=== PATIENT | female | born 1950 | race Caucasian/White ===

== ENCOUNTER 2023-05-03 23:41 | Emergency (ER) | payer OTHER, SELFPAY ==
[2023-05-03 23:51] VITALS: BP 185/86; PULSE 89; RESP 17; TEMP 36.3; O2SAT 98; BMI 30.2
--- NOTE | 2023-05-04 00:10 | ED_ITS ---
HPI - Extremity Problem General Chief complaint: Extremity Problem,Nontraumatic Stated complaint: rt knee possible infection after replacement Time Seen by Provider: 05/03/23 23:44 Source: patient Mode of arrival: Ambulatory History of Present Illness HPI Narrative: 73-year-old woman with history of bilateral knee replacement right knee done in February in [place], hypertension, hyperlipidemia currently on Dupixent for dermatologic reasons presents with increasing pain in the right knee. She is concerned that there may be developing infection. She notes over the last week she is been having increasing pain on the proximal lateral aspect of the right knee without fevers, chill, warmth, redness. There is still slightly more s welling in the right knee compared to the left knee with the surgery to replace the knee in February of 2023. She describes no specific trauma but is noticing mild increase in pain. She is worried that it is infected. She comes in for further evaluation Related Data Home Medications Medication Instructions Recorded Confirmed biotin 5 mg tablet ##0 11/18/17 01/13/23 naproxen sodium 220 mg capsule 220 mg PO ##0 11/18/17 01/13/23 (Aleve) simvastatin 10 mg tablet ##0 11/18/17 01/13/23 triamterene 37.5 ##0 11/18/17 01/13/23 mg-hydrochlorothiazide 25 mg tablet dupilumab [Dupixent Pen] SUBCUT 01/13/23 01/13/23 Previous Rx's Medication Instructions Recorded oseltamivir 75 mg capsule (Tamiflu) 75 mg PO BID #10 caps 11/18/17 Allergies Allergy/AdvReac Type Severity Reaction Status Date / Time No Known Drug Allergies Allergy Verified 05/03/23 23:51 Review of Systems Review of Systems Narrative: Pertinent positive and negative findings as per HPI Patient History Medical History (Updated 05/04/23 @ 01:30 by Svetlana Pham MD) Hyperlipidemia Hypertension Surgical History (Updated 05/04/23 @ 00:47 by Svetlana Pham MD) Total knee replacement status Social History Smoking Status: Former smoker Smoking Status: Former smoker Exam Initial Vital Signs Initial Vital Signs: Vital Signs Temperature 97.4 F L 05/03/23 23:51 Pulse Rate 89 05/03/23 23:51 Respiratory Rate 17 05/03/23 23:51 Blood Pressure 185/86 H 05/03/23 23:51 Pulse Oximetry 98 05/03/23 23:51 Oxygen Delivery Method Room Air 05/03/23 23:51 General: Healthy appearing, in no acute distress. Able to give a complete and coherent history. Well-nourished well-developed HEENT: Moist mucous membranes, normal sclera with reactive pupils, Respiratory: Lungs are clear to auscultation, no wheezing no rales no rhonchi. Full and symmetrical air movement Cardiac: Regular rate and rhythm no murmurs no bruits Abdomen: Soft, nontender, good bowel tones, no flank pain Skin: Warm and dry, no rashes Neurologic: Grossly neurologically intact with no obvious asymmetries or abnormalities Extremities: Knees are examined, bilateral knee replacement scars. Both well healed. The right leg is slightly more swollen than the left. There is no dramatic point tenderness nor effusion. No specific warmth or redness to the knee. Range of motion is not significantly limited with the right knee. Psych: Cooperative, appropriate insight and affect Course Orders Ordered: ED Orders 05/04/23 00:16 XR knee RT 3V Stat 05/04/23 00:25 CRP [C-Reactive Protein Quant] Stat Complete Blood Count AUTO DIFF Stat Comprehensive Metabolic Panel Stat D Dimer Stat Erythrocyte Sedimentation Rate Stat 05/04/23 00:52 US periph venous low extrem rt Stat Vital Signs Vital signs: Vital Signs - 8 hr 05/03/23 23:51 Temperature 97.4 F L Pulse Rate 89 Respiratory Rate 17 Blood Pressure 185/86 H Pulse Oximetry 98 Oxygen Delivery Method Room Air MDM - Extremity (Nontraumatic) Lab Data 05/04/23 00:25 05/04/23 00:25 Labs: Lab Results 05/04/23 05/04/23 05/04/23 Range/Units 00:25 00:25 00:25 WBC (4.5-11.0) X10^3/uL RBC (4.0-5.2) X10^6/uL Hgb (12.0-16.0) g/dL Hct (36-46) % MCV (80-100) fL MCH (26-34) PG MCHC (30-36) % RDW (11.6-14.8) % Plt Count (150-400) X10^3/uL Neut % (Auto) (50-75) % Lymph % (Auto) (25-40) % [place] % (Auto) (3-14) % Eos % (Auto) (2-4) % Baso % (Auto) (0-2) % Neut # (Auto) (0496-8376) /uL Lymph # (Auto) (9255-0690) /uL [place] # (Auto) (0-900) /uL Eos # (Auto) (0-450) /uL Baso # (Auto) (0-100) /uL ESR 15 (0-20) MM/HR D-Dimer 1258 H (<500) ng/ml Sodium (137-145) mmol/L Potassium (3.4-5.1) mmol/L Chloride (98-107) mmol/L Carbon Dioxide (22-32) mmol/L BUN (7-17) mg/dL Creatinine (0.52-1.04) mg/dL Estimated GFR (>60) mL/min BUN/Creatinine Ratio (6-22) Glucose (80-110) mg/dL Calcium (8.4-10.2) mg/dL Total Bilirubin (0.2-1.3) mg/dL AST (14-36) IU/L ALT (<35) IU/L Alkaline Phosphatase (38-126) U/L C-Reactive Protein < 0.5 (<1.0) mg/dL Total Protein (6.3-8.2) g/dL Albumin (3.5-5.0) g/dL Globulin (1.7-4.1) g/dL Albumin/Globulin Ratio (1.0-2.8) 05/04/23 05/04/23 Range/Units 00:25 00:25 WBC 6.3 (4.5-11.0) X10^3/uL RBC 4.44 (4.0-5.2) X10^6/uL Hgb 13.1 (12.0-16.0) g/dL Hct 38.1 (36-46) % MCV 85.7 (80-100) fL MCH 29.6 (26-34) PG MCHC 34.5 (30-36) % RDW 12.6 (11.6-14.8) % Plt Count 238 (150-400) X10^3/uL Neut % (Auto) 55.7 (50-75) % Lymph % (Auto) 32.4 (25-40) % [place] % (Auto) 7.9 (3-14) % Eos % (Auto) 3.0 (2-4) % Baso % (Auto) 1.0 (0-2) % Neut # (Auto) 3500 (2580-5333) /uL Lymph # (Auto) 2000 (9374-3052) /uL [place] # (Auto) 500 (0-900) /uL Eos # (Auto) 200 (0-450) /uL Baso # (Auto) 100 (0-100) /uL ESR (0-20) MM/HR D-Dimer (<500) ng/ml Sodium 135 L (137-145) mmol/L Potassium 3.1 L (3.4-5.1) mmol/L Chloride 98 (98-107) mmol/L Carbon Dioxide 31 (22-32) mmol/L BUN 22 H (7-17) mg/dL Creatinine 1.17 H (0.52-1.04) mg/dL Estimated GFR 50 L (>60) mL/min BUN/Creatinine Ratio 18.8 (6-22) Glucose 106 (80-110) mg/dL Calcium 8.9 (8.4-10.2) mg/dL Total Bilirubin 0.4 (0.2-1.3) mg/dL AST 26 (14-36) IU/L ALT 22 (<35) IU/L Alkaline Phosphatase 100 (38-126) U/L C-Reactive Protein (<1.0) mg/dL Total Protein 7.2 (6.3-8.2) g/dL Albumin 3.9 (3.5-5.0) g/dL Globulin 3.3 (1.7-4.1) g/dL Albumin/Globulin Ratio 1.2 (1.0-2.8) MDM Narrative Medical decision making narrative: CC: One-week of mild increasing pain right knee, post knee replacement May of this year Complicating co-morbidities: Bilateral knee replacements, currently on Dupixent Data collected from: patient, Social determinants of health that may influence the patients condition: Medical records reviewed: Differential considered: Right knee irritation, DVT, right knee infection, loosening right knee implant Exam documented above, pertinent findings include: Minimal tenderness over the proximal lateral aspect of the right knee without limited range of motion. No increased warmth or redness. Slightly more fullness right side than the left side as it has been since her surgery. Lab Test results independently reviewed as above. Pertinent findings: CBC is unremarkable D-dimer is elevated at 1258 Chemistries show mild hyponatremia 135, mildly low potassium at 3.1, creatinine at 1.17 with no comparison for baseline Sed rate of 15 CRP at less than 0.5 Independently reviewed EKG as above Imaging studies independently reviewed: Ultrasound of the right lower extremity does not show DVT X-ray of the knee shows a small joint effusion however there are no suspicious periprosthetic lucencies and no suspicious soft tissue calcifications, no fracture or dislocation. Discussion: 73-year-old woman comes in with increasing pain in her right knee after joint replacement in February. She is concerned that it might be infected and is at slight increased risk for infection given her Dupixent. At this point she does have a small effusion however it does not look like there is loosening of the joint hardware, any acute injuries, normal white blood cell count sed rate CRP without warmth or extreme tenderness I think infection is far less likely. There is no evidence of DVT. At this time I suspect this is simply mild overuse with effusion will recommend rest and elevation. Follow-up with orthopedic surgery if symptoms are not improving. Discharge Plan Departure Patient Disposition: Home Clinical Impression: Effusion of knee joint right Instructions: DI for Knee Pain Activity Restrictions/Additional Instructions: Thank you for coming in today I suspect that your knee pain is from mild overuse. You have a small effusion in the knee. X-rays do not show any significant abnormalities around the knee replacement to suggest that the hardware is loosening, white blood cell count, sed rate and CRP are all normal suggesting absence of any significant infection. Ultrasound does not show a blood clot in leg. At this time, I would recommend a bit more rest, ice for the knee and continued conservative management. I have given you copies of your blood work to share with your orthopedic surgeon if you choose to schedule an appointment in the next 1-2 weeks. If you find that you are getting worse or develop any new symptoms, please feel free to return to the emergency department for further evaluation. Prescriptions: No Action dupilumab [Dupixent Pen] SUBCUT simvastatin 10 MG tablet Qty: 0 triamterene-hydrochlorothiazid 37.5 MG/25 MG tablet Qty: 0 biotin 5 MG tablet Qty: 0 naproxen sodium [Aleve] 220 MG capsule 220 mg PO Qty: 0 oseltamivir [Tamiflu] 75 MG capsule 75 mg PO BID Qty: 10 0RF Referrals: Miscellaneous,Doctor, MD [Primary Care Provider] - Stand Alone Forms: Patient Portal/API
--- NOTE | 2023-05-04 00:16 | DI.RAD.S_ITS ---
PROCEDURE: XR KNEE RT 3V INDICATIONS: pain and swelling TECHNIQUE: 3 views of the knee were acquired. COMPARISON: None. FINDINGS: Bones: No fractures or dislocations. A right knee prosthesis is present. No suspicious periprosthetic lucencies. Soft tissues: There is a small joint effusion. No suspicious soft tissue calcifications. IMPRESSION: 1. No fracture or dislocation. 2. Small joint effusion. Dictated by: Dany Dumont M.D. on 05/04/2023 at 0:56 Approved by: Dany Dumont M.D. on 05/04/2023 at 1:00
[2023-05-04 00:34] LABS: Add Manual Diff / Slide Review NO; Basophils Absolute Auto 100 /uL (0-100); Eosinophils Absolute Auto 200 /uL (0-450); Hematocrit 38.1 % (36-46); Hemoglobin 13.1 g/dL (12.0-16.0); Lymphocytes Absolute Auto 2000 /uL (1100-4500); Lymphocytes Percent Auto 32.4 % (25-40); Mean Corpuscular HGB Conc 34.5 % (30-36); Mean Corpuscular Hemoglobin 29.6 PG (26-34); Mean Corpuscular Volume 85.7 fL (80-100); Monocytes Absolute Auto 500 /uL (0-900); Monocytes Percent Auto 7.9 % (3-14); Neutrophils Absolute Auto 3500 /uL (1500-7000); Neutrophils Percent Auto 55.7 % (50-75); Platelet Count 238 X10^3/uL (150-400); Red Blood Cell Count 4.44 X10^6/uL (4.0-5.2); Red Cell Distribution Width 12.6 % (11.6-14.8); White Blood Cell Count 6.3 X10^3/uL (4.5-11.0)
[2023-05-04 00:42] LABS: D Dimer 1258 ng/ml (<500)
[2023-05-04 00:45] LABS: Alanine Aminotransferase 22 IU/L (<35); Albumin 3.9 g/dL (3.5-5.0); Albumin Globulin Ratio 1.2 (1.0-2.8); Alkaline Phosphatase 100 U/L (38-126); Aspartate Aminotransferase 26 IU/L (14-36); BUN Creatinine Ratio 18.8 (6-22); Bilirubin Total 0.4 mg/dL (0.2-1.3); Blood Urea Nitrogen 22 mg/dL (7-17); Calcium 8.9 mg/dL (8.4-10.2); Carbon Dioxide 31 mmol/L (22-32); Chloride 98 mmol/L (98-107); Estimated Glomerular Filt Rate 50 mL/min (>60); Globulin 3.3 g/dL (1.7-4.1); Glucose 106 mg/dL (80-110); HEMOLYSIS 18 (0-50); Potassium 3.1 mmol/L (3.4-5.1); Sodium 135 mmol/L (137-145); Total Protein 7.2 g/dL (6.3-8.2)
--- NOTE | 2023-05-04 00:52 | DI.US.S_ITS ---
PROCEDURE: US PERIPH VENOUS LOW EXTREM RT INDICATIONS: INCREASING PAIN AND SWELLING KNEE REPLACED 02/23 TECHNIQUE: Real-time imaging, as well as color and pulse Doppler interrogation, were performed of the lower extremity deep veins from the inguinal ligament to the popliteal fossa. COMPARISON: None. FINDINGS: The common femoral, femoral and popliteal veins are normally compressible, and free of intraluminal thrombus. Color and pulse Doppler demonstrate normal phasic intraluminal flow. There is normal augmentation response to distal compression maneuver. IMPRESSION: 1. No evidence of deep venous thrombosis in the right lower extremity. Dictated by: Dany Dmuont M.D. on 05/04/2023 at 2:06 Approved by: Dany Dumont M.D. on 05/04/2023 at 2:34
[2023-05-04 00:59] LABS: C-Reactive Protein Quant < 0.5 mg/dL (<1.0)
[2023-05-04 01:02] LABS: Erythrocyte Sedimentation Rate 15 MM/HR (0-20)
[2023-05-04 01:35] VITALS: BP 166/78; PULSE 74; RESP 16; O2SAT 100
== END 2023-05-04 01:35 | disposition home or self-care (01) ==
PROVIDERS: Emergency Provider Emergency Medicine
DX: M25.461 Effusion, right knee (principal)
CPT/HCPCS: 36415; 73562; 80053; 85025; 85379; 85651; 86140; 93971; 99284

== ENCOUNTER 2025-03-22 19:19 | Emergency (ER) | payer OTHER, SELFPAY ==
[2025-03-22 19:29] VITALS: BP 161/74; PULSE 69; RESP 16; TEMP 37; O2SAT 98; BMI 28.8
--- NOTE | 2025-03-22 19:37 | EKG_ITS ---
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
--- NOTE | 2025-03-22 20:28 | ED_ITS ---
HPI - Arrhythmia/Palpitations General Chief Complaint: Arrhythmia/Palpitations Stated Complaint: Low heart rate sent by nurse line Time Seen by Provider: 03/22/25 20:28 Source: patient Mode of arrival: Ambulatory History of Present Illness HPI narrative: Patient is a 75-year-old female without any significant past medical history comes into the ED from home for evaluation of the heart rate, she states that she has had an and a restful night asleep and states that today she feels ?horrible she describes this as feeling nauseous lightheaded fatigue, states that she noticed that her heart rate was in the 50s and was concerned so called the primary care doctor and was instructed come into the ED she denies any chest pain shortness of breath or any other symptoms at this time. Related Data Home Medications ?Medication ?Instructions ?Recorded ?Confirmed biotin 5 mg tablet ##0 11/18/17 01/13/23 naproxen sodium 220 mg capsule 220 mg PO ##0 11/18/17 01/13/23 (Aleve) simvastatin 10 mg tablet ##0 11/18/17 01/13/23 triamterene 37.5 ##0 11/18/17 01/13/23 mg-hydrochlorothiazide 25 mg tablet dupilumab [Dupixent Pen] SUBCUT 01/13/23 01/13/23 Previous Rx's ?Medication ?Instructions ?Recorded oseltamivir 75 mg capsule (Tamiflu) 75 mg PO BID #10 c aps 11/18/17 Allergies Allergy/AdvReac Type Severity Reaction Status Date / Time No Known Drug Allergies Allergy Verified 03/22/25 19:29 Review of Systems Review of Systems Narrative: General: Positive generalized weakness Denies fever, chills, weight loss HEENT: Denies headache, eye drainage, eye irritation, head trauma, sore throat, voice change Cardiovascular: Positive bradycardia Denies any chest pain, palpitations, tachycardia Respiratory: Denies any shortness of breath, cough, wheeze, stridor GI/: Denies any abdominal pain, nausea, vomiting, diarrhea, bright red blood per rectum, melanotic stools, urinary frequency, urinary retention, dysuria, hematuria MSK: Denies any joint pain, muscle pains, swelling Skin: Denies any rashes, lesions, discoloration Neuro: Denies any headache, lightheadedness, dizziness, fainting, weakness Psych: Denies SI/HI Patient History Medical History (Updated 03/22/25 @ 21:58 by Hunter Artis DO) Hyperlipidemia Hypertension Surgical History (Updated 05/04/23 @ 00:47 by Svetlana Pham MD) Total knee replacement status Smoking Status: Never smoker Exam Narrative Exam Narrative: General: Cooperative, well-developed, not in acute distress HEENT: Normocephalic, atraumatic, PERRLA, normal sclera, eyelids normal Neck: Active full range of motion, atraumatic Chest: Normal to inspection, negative crepitus, no overlying erythema ecchymosis Respiratory: Normal respiratory effort, not in acute respiratory distress, clear to auscultation bilaterally negative cough, wheeze, tachypnea, rhonchi, rales Cardiology: Regular rate rhythm negative gallop, murmur, rubs GI/: No tenderness to palpation, soft, non rigid, normal to inspection, exam deferred MSK: Full active range of motion in all 4 extremities, atraumatic, no tenderness to palpation of any bony prominences Skin: No rashes or lesions noted Neuro: Alert awake oriented x3, moves all 4 extremities spontaneously, cranial nerves intact, able to answer all questions appropriately follows commands appropriately Psych: Cooperative, negative suicidal or homicidal ideations Initial Vital Signs Initial Vital Signs: Vital Signs Temperature 98.6 F 03/22/25 19:29 Pulse Rate 69 03/22/25 19:29 Respiratory Rate 16 03/22/25 19:29 Blood Pressure 161/74 H 03/22/25 19:29 Pulse Oximetry 98 03/22/25 19:29 Oxygen Delivery Method Room Air 03/22/25 19:29 Course Orders Ordered: ED Orders 03/22/25 19:37 EKG-12 Lead Stat 03/22/25 20:29 XR chest 1V Stat 03/22/25 20:33 Complete Blood Count AUTO DIFF Stat Comprehensive Metabolic Panel Stat Covid-19 + FLU A/B + RSV - PCR Stat Lipase Stat MAG [Magnesium] Stat Troponin & CK Cardiac Panel Stat 03/22/25 22:20 Urine Culture Stat Urine Microscopic Stat Vital Signs Vital signs: Vital Signs - 8 hr 03/22/25 19:29 Temperature 98.6 F Pulse Rate 69 Respiratory Rate 16 Blood Pressure 161/74 H Pulse Oximetry 98 Oxygen Delivery Method Room Air MDM - Arrhythmia/Palpitations Differential Diagnosis Differential diagnosis: Likely palpitations, anxiety, sinus tachycardia, artial fibrillation, artial flutter, ventricular premature beats, ventricular tachycardia and other (ACS, pneumonia, electrolyte abnormality, COVID, flu, RSV, urinary tract infection) Lab Data 03/22/25 20:33 03/22/25 20:33 Labs: Lab Results 03/22/25 Range/Units 20:33 WBC 6.3 (4.5-11.0) X10^3/uL RBC 4.64 (4.0-5.2) X10^6/uL Hgb 14.0 (12.0-16.0) g/dL Hct 41.1 (36-46) % MCV 88.5 (80-100) fL MCH 30.3 (26-34) PG MCHC 34.2 (30-36) % RDW 12.5 (11.6-14.8) % Plt Count 234 (150-400) X10^3/uL Neut % (Auto) 71.0 (50-75) % Lymph % (Auto) 21.3 L (25-40) % [place] % (Auto) 6.4 (3-14) % Eos % (Auto) 0.7 L (2-4) % Baso % (Auto) 0.6 (0-2) % Neut # (Auto) 4500 (2840-3677) /uL Lymph # (Auto) 1300 (2208-7445) /uL [place] # (Auto) 400 (0-900) /uL Eos # (Auto) 0 (0-450) /uL Baso # (Auto) 0 (0-100) /uL Sodium 137 (137-145) mmol/L Potassium 3.5 (3.4-5.1) mmol/L Chloride 103 (98-107) mmol/L Carbon Dioxide 26 (22-32) mmol/L BUN 20 H (7-17) mg/dL Creatinine 0.92 (0.52-1.04) mg/dL Estimated GFR > 60 (>60) mL/min BUN/Creatinine Ratio 21.7 (6-22) Glucose 111 H (70-99) mg/dL Calcium 9.5 (8.4-10.2) mg/dL Magnesium 1.7 (1.6-2.3) mg/dL Total Bilirubin 0.7 (0.2-1.3) mg/dL AST 23 (14-36) IU/L ALT 17 (<35) IU/L Alkaline Phosphatase 60 (38-126) U/L Total Creatine Kinase 71 (30-135) U/L Troponin I < 0.012 (0.01-0.034) ng/mL Total Protein 7.5 (6.3-8.2) g/dL Albumin 4.5 (3.5-5.0) g/dL Globulin 3.0 (1.7-4.1) g/dL Albumin/Globulin Ratio 1.5 (1.0-2.8) Lipase 78 (23-300) U/L SARS-CoV-2 (PCR) Negative (Negative) Influenza A (RT-PCR) Flu a negative (NEGATIVE) Influenza B (RT-PCR) Flu b negative (NEGATIVE) RSV (PCR) Negative (Negative) Urine Dip Bedside Urine Glucose Negative Bedside Urine Bilirubin - Negative Bedside Urine Ketone - Negative Urine Specific [place] 1.010 Bedside Urine Occult Blood - Negative Bedside Urine pH 6.0 Bedside Urine Protein - Negative Bedside Urine Urobilinogen - Negative Bedside Urine Nitrite - Negative Bedside Urine Leukocytes + 70 Esterase Imaging Data Chest x-ray: Radiologist's Impresson: [place] [id number] XRay Report Signed Patient: Vivienne Cosme MR#: [id number] : 1950 Acct:[id number] Age/Sex: 75 / F Date of Service: 03/22/25 Loc: ED Accession Number: [id number] Procedure: XR chest 1V Ordering Provider: Hunter Artis D.O. PROCEDURE: XR CHEST 1V INDICATIONS: palpitations TECHNIQUE: One view of the chest was acquired. COMPARISON: None. FINDINGS: Surgical changes and devices: None. Lungs and pleura: Lungs are clear. No pleural effusions or pneumothorax. Mediastinum: Mediastinal contours appear normal. Heart size is normal. Bones and chest wall: No suspicious bony lesions. Overlying soft tissues appear unremarkable. IMPRESSION: No acute cardiopulmonary abnormalities or focal consolidation. ECG Data Interpretation: EKG interpreted ED physician sinus at 66 beats per minute QTC 431 normal axis no STEMI MDM Narrative Medical decision making narrative: Patient is a 75-year-old female with a past medical history of hypertension presents from home for evaluation of multiple complaints, states that she was feeling generalized weakness that started last night and into earlier today, she states that she thought it was secondary to a ?bad night of sleep she states that she went to sleep feeling ?marcel went out today felling fine but when she got home she felt general fatigue, states that she checked her heart rate and states that it was low she states that it was in the 50s states it is normally in the 60s, she states that she has been compliant with her medications denies any trauma or falls denies any other symptoms such as chest pain shortness breath. Patient had lab work imaging EKG performed here in the emergency department. EKG normal sinus nonischemic, chest x-ray without any acute cardiopulmonary abnormality, troponin negative CMP without any acute findings no leukocytosis, respiratory panel negative, urinalysis , patient was monitored multiple times here, EKG not showing any a arrhythmias or blocks, she was instructed follow up with the primary care and Cardiology in outpatient setting she verbalized understanding of this and agrees to being discharged home with outpatient follow up Discharge Plan Departure Patient Disposition: Home Clinical Impression: Episode of generalized weakness Activity Restrictions/Additional Instructions: Please follow up with Cardiology and primary care Please read the discharge instructions sheet carefully and bring all papers to all doctor follow-up visits, as it may contain information that your doctor may want to see. Disease processes change and evolve, if your symptoms worsen or if you develop any new symptoms that are concerning to you please return for evaluation. Your evaluation today does not show any evidence of any life- threatening/serious illnesses requiring admission to the hospital or surgery. Please follow-up with your doctor for re-evaluation in approximately 1 day. Seek immediate medical attention for any worrisome symptoms. *If you do not have a primary care provider please contact the [facility] Resource line at [phone]. They will ask some questions about your medical history and help get you set up with a doctor in the community. Prescriptions: No Action dupilumab [Dupixent Pen] SUBCUT simvastatin 10 MG tablet Qty: 0 triamterene-hydrochlorothiazid 37.5 MG/25 MG tablet Qty: 0 biotin 5 MG tablet Qty: 0 naproxen sodium [Aleve] 220 MG capsule 220 mg PO Qty: 0 oseltamivir [Tamiflu] 75 MG capsule 75 mg PO BID Qty: 10 0RF Referrals: Miscellaneous,Doctor, MD [Primary Care Provider, Medical] Renetta Martin MD [Physician, Cardiology] Stand Alone Forms: Patient Portal/API
--- NOTE | 2025-03-22 20:29 | DI.RAD.S_ITS ---
PROCEDURE: XR CHEST 1V INDICATIONS: palpitations TECHNIQUE: One view of the chest was acquired. COMPARISON: None. FINDINGS: Surgical changes and devices: None. Lungs and pleura: Lungs are clear. No pleural effusions or pneumothorax. Mediastinum: Mediastinal contours appear normal. Heart size is normal. Bones and chest wall: No suspicious bony lesions. Overlying soft tissues appear unremarkable. IMPRESSION: No acute cardiopulmonary abnormalities or focal consolidation. Dictated by: Matt Gardner M.D. on 03/22/2025 at 20:52 Approved by: Matt Gardner M.D. on 03/22/2025 at 20:52
--- NOTE | 2025-03-22 20:40 | PC.NURSE ---
Pt had episode over night of feeling unwell with a low heart rate and low pressure. At home pressure was around 110/70 and HR 48-52. She felt weak, nauseated, and dizzy. she denies c/p, SOB, chest pressure, vision changes. She denies /GI s/sx. She denies new foods or meds. She lives in [place] and is here for vacation and called her nurse help line and was told to come in to the ED.
[2025-03-22 20:43] LABS: Add Manual Diff / Slide Review NO; Basophils Absolute Auto 0 /uL (0-100); Basophils Percent Auto 0.6 % (0-2); Eosinophils Absolute Auto 0 /uL (0-450); Eosinophils Percent Auto 0.7 % (2-4); Hematocrit 41.1 % (36-46); Lymphocytes Absolute Auto 1300 /uL (1100-4500); Lymphocytes Percent Auto 21.3 % (25-40); Mean Corpuscular HGB Conc 34.2 % (30-36); Mean Corpuscular Hemoglobin 30.3 PG (26-34); Mean Corpuscular Volume 88.5 fL (80-100); Monocytes Absolute Auto 400 /uL (0-900); Monocytes Percent Auto 6.4 % (3-14); Neutrophils Absolute Auto 4500 /uL (1500-7000); Platelet Count 234 X10^3/uL (150-400); Red Blood Cell Count 4.64 X10^6/uL (4.0-5.2); Red Cell Distribution Width 12.5 % (11.6-14.8); White Blood Cell Count 6.3 X10^3/uL (4.5-11.0)
[2025-03-22 20:53] LABS: Alanine Aminotransferase 17 IU/L (<35); Albumin 4.5 g/dL (3.5-5.0); Albumin Globulin Ratio 1.5 (1.0-2.8); Alkaline Phosphatase 60 U/L (38-126); Aspartate Aminotransferase 23 IU/L (14-36); BUN Creatinine Ratio 21.7 (6-22); Bilirubin Total 0.7 mg/dL (0.2-1.3); Blood Urea Nitrogen 20 mg/dL (7-17); Calcium 9.5 mg/dL (8.4-10.2); Carbon Dioxide 26 mmol/L (22-32); Chloride 103 mmol/L (98-107); Creatine Kinase 71 U/L (30-135); Estimated Glomerular Filt Rate > 60 mL/min (>60); Glucose 111 mg/dL (70-99); HEMOLYSIS 16 (0-50); Lipase 78 U/L (23-300); Magnesium 1.7 mg/dL (1.6-2.3); Potassium 3.5 mmol/L (3.4-5.1); Sodium 137 mmol/L (137-145); Total Protein 7.5 g/dL (6.3-8.2)
[2025-03-22 21:04] LABS: Troponin I < 0.012 ng/mL (0.01-0.034)
[2025-03-22 21:38] LABS: Influenza A - CEPHEID Flu A NEGATIVE (NEGATIVE); Influenza B - CEPHEID Flu B NEGATIVE (NEGATIVE); Respiratory Syncytial Virus Negative (Negative)
[2025-03-22 21:44] LABS: COVID-19 CEPHEID 4-PLEX PCR Negative (Negative)
[2025-03-22 22:56] LABS: Bacteria Urine Occasional (0-1); RBC Urine 0-1/HPF (0-5/HPF); Squamous Epithelial Cell Urine 1-5 /HPF (0-5/HPF); Urine Volume 10mL (spun); WBC Urine 0-1/HPF (0-5/HPF)
== END 2025-03-22 22:38 | disposition home or self-care (01) ==
PROVIDERS: Emergency Provider Student in an Organized Health Care Education/Training Program
DX: R53.1 Weakness (principal); R00.2 Palpitations
CPT/HCPCS: 0241U; 36415; 71045; 80053; 81003; 81015; 82550; 83690; 83735; 84484; 85025; 87086; 93005; 93010; 99283; 99284

== ENCOUNTER 2025-06-30 10:12 | Emergency (ER) | payer OTHER, SELFPAY ==
[2025-06-30] VITALS (61 sets, daily range): BP systolic 111–146; BP diastolic 50–101; PULSE 50–92; RESP 9–42; TEMP 36.4–36.6; O2SAT 91–100; BMI 28.0
--- NOTE | 2025-06-30 10:24 | EKG_ITS ---
[address] [address] Test Date: 2025-06-30 Pat Name: Vivienne Cosme Department: Room: Gender: Female Health Companion: HEENA : 1950 Requested By: Order Number: [id number] Reading MD: Seamus Montenegro MD Measurements Intervals [place] Rate: 58 P: 50 WI: 154 QRS: 50 QRSD: 92 T: 55 QT: 448 QTc: 439 Interpretive Statements Sinus bradycardia Electronically Signed On 06-30-2025 10:48:16 PDT by Seamus Montenegro MD
--- NOTE | 2025-06-30 10:24 | ED_ITS ---
HPI - Chest Pain <Seamus Ferrer, DO - Last Filed: 07/01/25 10:45> General Chief Complaint: Arrhythmia/Palpitations Stated Complaint: Heart issue; loss consiousness; EMS rec ER visit Time Seen by Provider: 06/30/25 10:16 History of Present Illness HPI narrative: 75-year-old female history of hypertension, dyslipidemia seen 6 weeks ago approximately here in the ER for syncopal episode while sitting in the car went back to [place] where she resides half time of the year placed on a Holter monitor for which he is still wearing presents today with lightheaded and dizziness and had a witnessed syncopal episode that lasted for approximately 30 seconds prior to arrival here. Patient's PCP from [facility] called that she had 6 and 9 sec conversion pauses and will need a pacemaker. Patient is nauseous but denies any headache, fever, rash, blurred vision, chest pain, shortness of breath, diaphoresis, diarrhea, sick contacts, or any history of CVA TIA seizure episodes. Other than what is stated 14 point review of system is negative. Related Data Home Medications ?Medication ?Instructions ?Recorded ?Confirmed biotin 5 mg tablet ##0 11/18/17 01/13/23 naproxen sodium 220 mg capsule 220 mg PO ##0 11/18/17 01/13/23 (Aleve) simvastatin 10 mg tablet ##0 11/18/17 01/13/23 triamterene 37.5 ##0 11/18/17 01/13/23 mg-hydrochlorothiazide 25 mg tablet dupilumab [Dupixent Pen] SUBCUT 01/13/23 01/13/23 Previous Rx's ?Medication ?Instructions ?Recorded oseltamivir 75 mg capsule (Tamiflu) 75 mg PO BID #10 c aps 11/18/17 Allergies Allergy/AdvReac Type Severity Reaction Status Date / Time No Known Drug Allergies Allergy Verified 03/22/25 19:29 Review of Systems <Seamus Ferrer, DO - Last Filed: 07/01/25 10:45> Review of Systems ROS Unobtainable: All systems reviewed & are unremarkable except as noted in HPI and below Patient History <Seamus Ferrer, DO - Last Filed: 07/01/25 10:45> Medical History (Updated 06/30/25 @ 21:53 by Svetlana Pham MD) Hyperlipidemia Hypertension Surgical History (Updated 05/04/23 @ 00:47 by Svetlana Pham MD) Total knee replacement status Exam <Seamus Ferrer DO - Last Filed: 07/01/25 10:45> Narrative Exam Narrative: GENERAL: [75] year old patient appears stated age. Well-developed patient, in mild distress. HEAD: Atraumatic. Normocephalic. EYES: Pupils equal round and reactive. Extraocular motions intact. No scleral icterus. No injection or drainage. ENT: Nose without bleeding, purulent drainage. Throat without erythema, tonsillar hypertrophy or exudate. Airway patent. NECK: Trachea midline. Non tender CARDIOVASCULAR: Regular rate and rhythm without murmurs, gallops, or rubs. RESPIRATORY: Clear to auscultation. Breath sounds equal bilaterally. No wheezes, rales, or rhonchi. GASTROINTESTINAL: Abdomen soft, non-tender, nondistended. EXTREMITIES: No edema or joint tenderness. BACK: Nontender without deformity or crepitance. No flank tenderness. NEURO: AOx3. GCS 15 nonfocal neuro exam 5/5 upper and lower extremity strength uterine nose opposite [id number] rapid alternating movements all intact negative pronator drift SKIN: No rash or erythema of visible areas Initial Vital Signs Initial Vital Signs: Vital Signs Blood Pressure 134/63 06/30/25 10:22 <Svetlana Pham MD - Last Filed: 06/30/25 23:30> Initial Vital Signs Initial Vital Signs: Vital Signs Blood Pressure 134/63 06/30/25 10:22 Course <Seamus Ferrer DO - Last Filed: 07/01/25 10:45> Orders Ordered: Discontinued Medications Heparin Sodium (Porcine) (Heparin 5,000 Unit/Ml Vial) 4,500 unit 60 unit/kg (4500 unit) IV NOW ONE Stop: 06/30/25 14:45 Last Admin: 06/30/25 15:34 Dose: 4,500 unit Documented By: SHABBIR Heparin Sodium/Dextrose (Heparin Drip) 25,000 unit in 500 mls @ 18.942 mls/hr IV CONT ION; Protocol Last Titration: 06/30/25 22:46 Dose: 12 units/kg/hr, 18.942 mls/hr Documented By: JERSON Co-signed By: Admin: 06/30/25 15:33 Dose: 12 units/kg/hr, 18.942 mls/hr Documented By: SHABBIR Co-signed By: BITA Ondansetron HCl (Ondansetron 4 Mg/2 Ml Inj) 4 mg IV NOW ONE Stop: 06/30/25 10:39 Last Admin: 06/30/25 13:04 Dose: Not Given Documented By: SHABBIR Vital Signs Vital signs: Vital Signs - 8 hr 06/30/25 15:30 06/30/25 15:30 06/30/25 15:45 Temperature Pulse Rate 75 67 Respiratory Rate 21 27 H Blood Pressure 127/58 L Pulse Oximetry 95 98 Oxygen Delivery Method 06/30/25 16:00 06/30/25 16:00 06/30/25 16:15 Temperature Pulse Rate 71 80 Respiratory Rate 21 31 H Blood Pressure 130/59 L Pulse Oximetry 99 99 Oxygen Delivery Method 06/30/25 16:30 06/30/25 16:30 06/30/25 16:45 Temperature Pulse Rate 77 76 Respiratory Rate 29 H 24 Blood Pressure 142/63 H Pulse Oximetry 97 Oxygen Delivery Method 06/30/25 17:00 06/30/25 17:00 06/30/25 17:15 Temperature Pulse Rate 77 75 Respiratory Rate 23 21 Blood Pressure 128/60 Pulse Oximetry 98 99 Oxygen Delivery Method 06/30/25 17:30 06/30/25 17:30 06/30/25 17:45 Temperature Pulse Rate 78 74 Respiratory Rate 21 22 Blood Pressure 139/65 Pulse Oximetry 99 99 Oxygen Delivery Method 06/30/25 18:00 06/30/25 18:00 06/30/25 18:15 Temperature Pulse Rate 76 79 Respiratory Rate 32 H 24 Blood Pressure 137/62 Pulse Oximetry 99 99 Oxygen Delivery Method 06/30/25 18:30 06/30/25 18:30 06/30/25 18:45 Temperature Pulse Rate 76 88 Respiratory Rate 42 H 36 H Blood Pressure 136/62 Pulse Oximetry 99 99 Oxygen Delivery Method 06/30/25 19:00 06/30/25 19:00 06/30/25 19:15 Temperature Pulse Rate 78 79 Respiratory Rate 28 H 22 Blood Pressure 132/60 Pulse Oximetry 97 97 Oxygen Delivery Method 06/30/25 19:30 06/30/25 19:30 06/30/25 19:45 Temperature Pulse Rate 82 84 Respiratory Rate 21 29 H Blood Pressure 138/62 Pulse Oximetry 97 96 Oxygen Delivery Method 06/30/25 20:00 06/30/25 20:00 06/30/25 20:15 Temperature Pulse Rate 82 84 Respiratory Rate 25 H 27 H Blood Pressure 128/60 Pulse Oximetry 96 96 Oxygen Delivery Method 06/30/25 20:30 06/30/25 20:30 06/30/25 20:45 Temperature Pulse Rate 85 92 H Respiratory Rate 25 H 31 H Blood Pressure 137/65 Pulse Oximetry 96 96 Oxygen Delivery Method 06/30/25 21:00 06/30/25 21:00 06/30/25 21:15 Temperature Pulse Rate 88 87 Respiratory Rate 23 31 H Blood Pressure 131/60 Pulse Oximetry 98 97 Oxygen Delivery Method 06/30/25 21:30 06/30/25 21:30 06/30/25 21:35 Temperature Pulse Rate 91 H Respiratory Rate 23 Blood Pressure 145/67 H 135/63 Pulse Oximetry 95 Oxygen Delivery Method 06/30/25 21:35 06/30/25 21:40 06/30/25 21:40 Temperature Pulse Rate 77 78 Respiratory Rate 21 22 Blood Pressure 120/58 L Pulse Oximetry 94 93 Oxygen Delivery Method 06/30/25 21:45 06/30/25 21:45 06/30/25 21:50 Temperature Pulse Rate 80 Respiratory Rate 19 Blood Pressure 118/56 L 116/55 L Pulse Oximetry 91 Oxygen Delivery Method Room Air 06/30/25 21:50 06/30/25 21:55 06/30/25 21:55 Temperature 97.5 F L Pulse Rate 82 78 Respiratory Rate 25 H 33 H Blood Pressure 116/50 L Pulse Oximetry 91 93 Oxygen Delivery Method Room Air 06/30/25 22:00 06/30/25 22:00 06/30/25 22:05 Temperature Pulse Rate 82 Respiratory Rate 20 Blood Pressure 116/56 L 111/53 L Pulse Oximetry 93 Oxygen Delivery Method 06/30/25 22:05 06/30/25 22:10 06/30/25 22:10 Temperature Pulse Rate 79 81 Respiratory Rate 21 25 H Blood Pressure 119/53 L Pulse Oximetry 94 93 Oxygen Delivery Method 06/30/25 22:15 06/30/25 22:15 Temperature Pulse Rate 75 Respiratory Rate 32 H Blood Pressure 111/56 L Pulse Oximetry 93 Oxygen Delivery Method <Svetlana Pham MD - Last Filed: 06/30/25 23:30> Orders Ordered: Discontinued Medications Heparin Sodium (Porcine) (Heparin 5,000 Unit/Ml Vial) 4,500 unit 60 unit/kg (4500 unit) IV NOW ONE Stop: 06/30/25 14:45 Last Admin: 06/30/25 15:34 Dose: 4,500 unit Documented By: SHABBIR Heparin Sodium/Dextrose (Heparin Drip) 25,000 unit in 500 mls @ 18.942 mls/hr IV CONT ION; Protocol Last Titration: 06/30/25 22:46 Dose: 12 units/kg/hr, 18.942 mls/hr Documented By: JERSON Co-signed By: Admin: 06/30/25 15:33 Dose: 12 units/kg/hr, 18.942 mls/hr Documented By: SHABBIR Co-signed By: BITA Ondansetron HCl (Ondansetron 4 Mg/2 Ml Inj) 4 mg IV NOW ONE Stop: 06/30/25 10:39 Last Admin: 06/30/25 13:04 Dose: Not Given Documented By: SHABBIR Vital Signs Vital signs: Vital Signs - 8 hr 06/30/25 15:30 06/30/25 15:30 06/30/25 15:45 Temperature Pulse Rate 75 67 Respiratory Rate 21 27 H Blood Pressure 127/58 L Pulse Oximetry 95 98 Oxygen Delivery Method 06/30/25 16:00 06/30/25 16:00 06/30/25 16:15 Temperature Pulse Rate 71 80 Respiratory Rate 21 31 H Blood Pressure 130/59 L Pulse Oximetry 99 99 Oxygen Delivery Method 06/30/25 16:30 06/30/25 16:30 06/30/25 16:45 Temperature Pulse Rate 77 76 Respiratory Rate 29 H 24 Blood Pressure 142/63 H Pulse Oximetry 97 Oxygen Delivery Method 06/30/25 17:00 06/30/25 17:00 06/30/25 17:15 Temperature Pulse Rate 77 75 Respiratory Rate 23 21 Blood Pressure 128/60 Pulse Oximetry 98 99 Oxygen Delivery Method 06/30/25 17:30 06/30/25 17:30 06/30/25 17:45 Temperature Pulse Rate 78 74 Respiratory Rate 21 22 Blood Pressure 139/65 Pulse Oximetry 99 99 Oxygen Delivery Method 06/30/25 18:00 06/30/25 18:00 06/30/25 18:15 Temperature Pulse Rate 76 79 Respiratory Rate 32 H 24 Blood Pressure 137/62 Pulse Oximetry 99 99 Oxygen Delivery Method 06/30/25 18:30 06/30/25 18:30 06/30/25 18:45 Temperature Pulse Rate 76 88 Respiratory Rate 42 H 36 H Blood Pressure 136/62 Pulse Oximetry 99 99 Oxygen Delivery Method 06/30/25 19:00 06/30/25 19:00 06/30/25 19:15 Temperature Pulse Rate 78 79 Respiratory Rate 28 H 22 Blood Pressure 132/60 Pulse Oximetry 97 97 Oxygen Delivery Method 06/30/25 19:30 06/30/25 19:30 06/30/25 19:45 Temperature Pulse Rate 82 84 Respiratory Rate 21 29 H Blood Pressure 138/62 Pulse Oximetry 97 96 Oxygen Delivery Method 06/30/25 20:00 06/30/25 20:00 06/30/25 20:15 Temperature Pulse Rate 82 84 Respiratory Rate 25 H 27 H Blood Pressure 128/60 Pulse Oximetry 96 96 Oxygen Delivery Method 06/30/25 20:30 06/30/25 20:30 06/30/25 20:45 Temperature Pulse Rate 85 92 H Respiratory Rate 25 H 31 H Blood Pressure 137/65 Pulse Oximetry 96 96 Oxygen Delivery Method 06/30/25 21:00 06/30/25 21:00 06/30/25 21:15 Temperature Pulse Rate 88 87 Respiratory Rate 23 31 H Blood Pressure 131/60 Pulse Oximetry 98 97 Oxygen Delivery Method 06/30/25 21:30 06/30/25 21:30 06/30/25 21:35 Temperature Pulse Rate 91 H Respiratory Rate 23 Blood Pressure 145/67 H 135/63 Pulse Oximetry 95 Oxygen Delivery Method 06/30/25 21:35 06/30/25 21:40 06/30/25 21:40 Temperature Pulse Rate 77 78 Respiratory Rate 21 22 Blood Pressure 120/58 L Pulse Oximetry 94 93 Oxygen Delivery Method 06/30/25 21:45 06/30/25 21:45 06/30/25 21:50 Temperature Pulse Rate 80 Respiratory Rate 19 Blood Pressure 118/56 L 116/55 L Pulse Oximetry 91 Oxygen Delivery Method Room Air 06/30/25 21:50 06/30/25 21:55 06/30/25 21:55 Temperature 97.5 F L Pulse Rate 82 78 Respiratory Rate 25 H 33 H Blood Pressure 116/50 L Pulse Oximetry 91 93 Oxygen Delivery Method Room Air 06/30/25 22:00 06/30/25 22:00 06/30/25 22:05 Temperature Pulse Rate 82 Respiratory Rate 20 Blood Pressure 116/56 L 111/53 L Pulse Oximetry 93 Oxygen Delivery Method 06/30/25 22:05 06/30/25 22:10 06/30/25 22:10 Temperature Pulse Rate 79 81 Respiratory Rate 21 25 H Blood Pressure 119/53 L Pulse Oximetry 94 93 Oxygen Delivery Method 06/30/25 22:15 06/30/25 22:15 Temperature Pulse Rate 75 Respiratory Rate 32 H Blood Pressure 111/56 L Pulse Oximetry 93 Oxygen Delivery Method MDM - Chest Pain <Seamus Ferrer, DO - Last Filed: 07/01/25 10:45> Lab Data 06/30/25 10:23 06/30/25 10:23 Labs: Lab Results 06/30/25 06/30/25 06/30/25 Range/Units 10:23 15:10 16:41 WBC 5.4 (4.5-11.0) X10^3/uL RBC 4.72 (4.0-5.2) X10^6/uL Hgb 14.4 (12.0-16.0) g/dL Hct 41.3 (36-46) % MCV 87.6 (80-100) fL MCH 30.5 (26-34) PG MCHC 34.8 (30-36) % RDW 12.7 (11.6-14.8) % Plt Count 214 (150-400) X10^3/uL Neut % (Auto) 65.7 (50-75) % Lymph % (Auto) 26.0 (25-40) % [place] % (Auto) 6.1 (3-14) % Eos % (Auto) 1.4 L (2-4) % Baso % (Auto) 0.8 (0-2) % Neut # (Auto) 3500 (5116-4918) /uL Lymph # (Auto) 1400 (3324-7846) /uL [place] # (Auto) 300 (0-900) /uL Eos # (Auto) 100 (0-450) /uL Baso # (Auto) 0 (0-100) /uL PT 11.2 (9.4-12.5) SECONDS INR 1.0 (0.9-1.3) APTT 28 (25.1-36.5) SECONDS Sodium 137 (137-145) mmol/L Potassium 3.4 (3.4-5.1) mmol/L Chloride 101 (98-107) mmol/L Carbon Dioxide 29 (22-32) mmol/L BUN 19 H (7-17) mg/dL Creatinine 0.96 (0.52-1.04) mg/dL Estimated GFR > 60 (>60) mL/min BUN/Creatinine Ratio 19.8 (6-22) Glucose 109 H (70-99) mg/dL Calcium 9.1 (8.4-10.2) mg/dL Magnesium 1.8 (1.6-2.3) mg/dL Total Bilirubin 0.7 (0.2-1.3) mg/dL AST 28 (14-36) IU/L ALT 17 (<35) IU/L Alkaline Phosphatase 60 (38-126) U/L Total Creatine Kinase 76 (30-135) U/L Troponin I < 0.012 < 0.012 (0.01-0.034) ng/mL NT-Pro-B Natriuret Pep 67 (<125) pg/mL Total Protein 7.9 (6.3-8.2) g/dL Albumin 4.6 (3.5-5.0) g/dL Globulin 3.3 (1.7-4.1) g/dL Albumin/Globulin Ratio 1.4 (1.0-2.8) Lipase 76 (23-300) U/L TSH 0.086 L (0.47-4.68) uIU/mL Free T4 1.13 (0.78-2.19) ng/dL Urine RBC None seen (0-5/HPF) Urine WBC 0-1/hpf (0-5/HPF) Ur Squamous Epith Cells None seen (0-5/HPF) Urine Bacteria Few (2-10) H (None) Ur Culture Indicated? Cult not indicated Vol Urine Centrifuged 10ml (spun) Imaging Data CT scan - head: Radiologist's Impression: [address] [address] [address] Scan Report Signed Patient: Vivienne Cosme MR#: [id number] : 1950 Acct:[id number] Age/Sex: 75 / F Date of Service: 06/30/25 Loc: ED Accession Number: [id number] Procedure: CT head/brain wo con Ordering Provider: Seamus Ferrer D.O. PROCEDURE: CT HEAD/BRAIN WO CON INDICATIONS: syncope TECHNIQUE: Noncontrast 4.5 mm thick angled axial sections acquired from the foramen magnum to the vertex, with coronal and sagittal reformats. For radiation dose reduction, the following was used: automated exposure control, adjustment of mA and/or kV according to patient size. COMPARISON: Located Within [facility], CT, CT ANGIO CHEST PE PROTOCOL, 06/30/2025, 12:07. Located Within [facility], CT, CT ANGIO HEAD AND NECK, 06/30/2025, 11:21. FINDINGS: Image quality: Diagnostic. CSF spaces: Basal cisterns are patent. No extra-axial fluid collections. The ventricles are symmetric in size and shape. Brain: No intracranial bleeds or mass effect. There is cerebral volume loss, with resultant ventricular and sulcal prominence. There are periventricular and deep white matter chronic small vessel ischemic changes. There is intracranial internal carotid artery atherosclerosis. Skull and face: Calvarium and visualized facial bones appear intact, without suspicious lesions. Sinuses: Visualized sinuses and mastoids are clear. IMPRESSION: No imaging explanation is found for this patient's presenting symptoms. No acute intracranial pathology. Dictated by: Scooby Escalante M.D. on 06/30/2025 at 11:29 Approved by: Scooby Escalante M.D. on 06/30/2025 at 11:31 Extremity x-ray #1: Radiologist's Impression: [place] [address] CT Scan Report Signed Patient: Vivienne Cosme MR#: [id number] : 1950 Acct:[id number] Age/Sex: 75 / F Date of Service: 06/30/25 Loc: ED Accession Number: [id number] Procedure: CT angio head and neck Ordering Provider: Seamus Ferrer D.O. PROCEDURE: CT ANGIO HEAD AND NECK INDICATIONS: syncope TECHNIQUE: After the administration of intravenous contrast, 1 mm thick sections acquired from the aortic arch through the [place] of [place]. 3-dimensional qiameyk-zfbtshchs-azoxfxzclw (MIP) and/or volume rendering reformats were acquired of the central intracranial vasculature and neck separately. For radiation dose reduction, the following was used: automated exposure control, adjustment of mA and/or kV according to patient size. COMPARISON: Located Within [facility], CT, CT ANGIO CHEST PE PROTOCOL, 06/30/2025, 12:07. Located Within [facility], CT, CT HEAD/BRAIN WO CON, 06/30/2025, 11:21. FINDINGS: Image quality: Limited by bolus timing, with venous contamination. There is artifact associated with the metallic hardware. Artifact from the metallic hardware is reduced by metal reconstruction algorithm. There is streak artifact seen through the level of the shoulders. Cerebral CT Angiogram: Internal carotid arteries: No acute findings. Intracranial ICA are patent with no significant stenosis. No occlusion. No aneurysm. Anterior cerebral arteries: Unremarkable. No significant stenosis. No occlusion. No aneurysm. Middle cerebral arteries: Unremarkable. No significant stenosis. No occlusion. No aneurysm. Posterior cerebral arteries: The left V4 segment is within normal limits. The right V4 segment largely terminates in the right posterior inferior cerebellar artery. Flow within the posterior cerebral arteries is normal and symmetric. No aneurysms are seen. Basilar artery: Unremarkable. No significant stenosis. No occlusion. No aneurysm. Vertebral arteries: Unremarkable as visualized. Dural venous sinuses: Unremarkable given phase of enhancement. Other: Arterial phase appearance of the brain parenchyma is unremarkable. Neck CT Angiogram: Internal carotid arteries: Unremarkable. No significant stenosis. No dissection or occlusion. Common carotid arteries: Unremarkable. No significant stenosis. No dissection or occlusion. External carotid arteries: Unremarkable. No occlusion. Vertebral arteries: The origins of the vertebral arteries both appear widely patent. The more superior extracranial portions of both vertebral arteries also demonstrate normal courses and calibers. The left vertebral artery is dominant to the right. Aortic Arch and Mediastinum: Partially visualized aortic arch unremarkable without evidence of aneurysm. Origins of the great vessels unremarkable. Other: Arterial phase soft tissues of the neck and chest are unremarkable. At least moderate lower cervical spine degenerative change can be seen. IMPRESSION: No significant intracranial arterial abnormality is seen. No significant abnormality is seen within the arteries of the neck. Additional findings: Jbvigi-fy-Hfiqjp developmental anomalies. At least moderate lower cervical spine degenerative change Any quantitative measurements of stenosis were performed using NASCET criteria. CT scan - chest: Radiologist's Impression: [address] [address] [address] Scan Report Signed Patient: Vivienne Cosme MR#: [id number] : 1950 Acct:[id number] Age/Sex: 75 / F Date of Service: 06/30/25 Loc: ED Accession Number: [id number] Procedure: CT angio chest PE protocol Ordering Provider: Seamus Ferrer D.O. PROCEDURE: CT ANGIO CHEST PE PROTOCOL INDICATIONS: Syncope TECHNIQUE: After the administration of intravenous contrast, 2 mm thick sections acquired from the pulmonary apices to the posterior costophrenic angles. 3-dimensional maximum intensity projection (MIP) coronal and sagittal reformats were then acquired through the thorax. For radiation dose reduction, the following was used: automated exposure control, adjustment of mA and/or kV according to patient size. COMPARISON: Located Within [facility], CR, XR CHEST 1V, 03/22/2025, 20:27. Located Within [facility], CT, CT ANGIO HEAD AND NECK, 06/30/2025, 11:21. Located Within [facility], CT, CT HEAD/BRAIN WO CON, 06/30/2025, 11:21. FINDINGS: Image quality: Diagnostic. Pulmonary arteries: Pulmonary arteries are normal in size, and demonstrate no intraluminal filling defects to suggest central pulmonary embolism. Lower Neck: No enlarged lymph nodes. Thyroid: No thyroid nodules which require sonographic follow up, per consensus guidelines. Axillae: No enlarged lymph nodes. Chest Wall: Unremarkable. Bones: Age-appropriate bony degenerative changes are seen. Accentuated thoracic kyphosis is seen. Lungs and Pleura: No pneumothorax or pleural effusions. Mild dependent atelectasis can be seen. No consolidation or suspicious nodules. Heart: Heart size is normal. No pericardial effusion. Thoracic Vessels: No aortic aneurysm. Mediastinum and [place]: No enlarged lymph nodes. Esophagus: No wall thickening. No hiatal hernia. Upper Abdomen: Gallstones are gallstones are seen within the gallbladder. No additional CT findings of cholecystitis are seen. Excreting contrast can be seen within the renal collecting systems. Colonic diverticulosis is seen, without findings of active diverticulitis. The visualized portions of the upper abdominal structures are otherwise unremarkable for imaging technique. IMPRESSION: No pulmonary embolus. No acute cardiopulmonary process. Additional findings: Gallstones Diverticulosis, without active diverticulitis Dictated by: Scooby Escalante M.D. on 06/30/2025 at 12:02 Approved by: Scooby Escalante M.D. on 06/30/2025 at 12:04 ECG Data Interpretation: Sinus Antonio HR 58 PA 154 QRS [address]-t wave change Change from 03/12/25 MDM Narrative Medical decision making narrative: Vital signs, nurse triage note, medication list, previous ER visits, and all imaging studies reviewed. WBC 5.4 hemoglobin 14.4 platelet 214 INR 1.0 sodium 137 potassium 3.4 chloride 101 CO2 29 BUN 19 creatinine 0.96 glucose 109 troponin normal BNP [address] head showed no acute intracranial pathology. CT angio head and chest showed no acute process. Differential diagnosis symptomatic bradycardia secondary to 1st 2nd 3rd degree AV block. from [facility] has given approval for transfer to outside facility for further care. I have spoken with Dr. Alexey gage MD who agrees with care of plan and to be transferred and to start on heparin as conversion pauses may also indicate atrial fibrillation. Pt s/o to at shift change pending final disposition <Svetlana Pham MD - Last Filed: 06/30/25 23:30> Lab Data Labs: Lab Results 06/30/25 06/30/25 06/30/25 Range/Units 10:23 15:10 16:41 WBC 5.4 (4.5-11.0) X10^3/uL RBC 4.72 (4.0-5.2) X10^6/uL Hgb 14.4 (12.0-16.0) g/dL Hct 41.3 (36-46) % MCV 87.6 (80-100) fL MCH 30.5 (26-34) PG MCHC 34.8 (30-36) % RDW 12.7 (11.6-14.8) % Plt Count 214 (150-400) X10^3/uL Neut % (Auto) 65.7 (50-75) % Lymph % (Auto) 26.0 (25-40) % [place] % (Auto) 6.1 (3-14) % Eos % (Auto) 1.4 L (2-4) % Baso % (Auto) 0.8 (0-2) % Neut # (Auto) 3500 (9936-9474) /uL Lymph # (Auto) 1400 (1621-4784) /uL [place] # (Auto) 300 (0-900) /uL Eos # (Auto) 100 (0-450) /uL Baso # (Auto) 0 (0-100) /uL PT 11.2 (9.4-12.5) SECONDS INR 1.0 (0.9-1.3) APTT 28 (25.1-36.5) SECONDS Sodium 137 (137-145) mmol/L Potassium 3.4 (3.4-5.1) mmol/L Chloride 101 (98-107) mmol/L Carbon Dioxide 29 (22-32) mmol/L BUN 19 H (7-17) mg/dL Creatinine 0.96 (0.52-1.04) mg/dL Estimated GFR > 60 (>60) mL/min BUN/Creatinine Ratio 19.8 (6-22) Glucose 109 H (70-99) mg/dL Calcium 9.1 (8.4-10.2) mg/dL Magnesium 1.8 (1.6-2.3) mg/dL Total Bilirubin 0.7 (0.2-1.3) mg/dL AST 28 (14-36) IU/L ALT 17 (<35) IU/L Alkaline Phosphatase 60 (38-126) U/L Total Creatine Kinase 76 (30-135) U/L Troponin I < 0.012 < 0.012 (0.01-0.034) ng/mL NT-Pro-B Natriuret Pep 67 (<125) pg/mL Total Protein 7.9 (6.3-8.2) g/dL Albumin 4.6 (3.5-5.0) g/dL Globulin 3.3 (1.7-4.1) g/dL Albumin/Globulin Ratio 1.4 (1.0-2.8) Lipase 76 (23-300) U/L TSH 0.086 L (0.47-4.68) uIU/mL Free T4 1.13 (0.78-2.19) ng/dL Urine RBC None seen (0-5/HPF) Urine WBC 0-1/hpf (0-5/HPF) Ur Squamous Epith Cells None seen (0-5/HPF) Urine Bacteria Few (2-10) H (None) Ur Culture Indicated? Cult not indicated Vol Urine Centrifuged 10ml (spun) MDM Narrative Medical decision making narrative: Vital signs, nurse triage note, medication list, previous ER visits, and all imaging studies reviewed. WBC 5.4 hemoglobin 14.4 platelet 214 INR 1.0 sodium 137 potassium 3.4 chloride 101 CO2 29 BUN 19 creatinine 0.96 glucose 109 troponin normal BNP [address] head showed no acute intracranial pathology. CT angio head and chest showed no acute process. Differential diagnosis symptomatic bradycardia secondary to 1st 2nd 3rd degree AV block. from [facility] has given approval for transfer to outside facility for further care. I have spoken with Dr. Alexey gage MD who agrees with care of plan and to be transferred and to start on heparin as conversion pauses may also indicate atrial fibrillation. Pt s/o to at shift change pending final disposition Dr Pham. Care assumed, chart reviewed, patient independently evaluated. Syncopal episode today with monitoring device showing long cardiac pause. Cardiology suggested heparin in case this was a AFib to sinus rhythm pause. No evidence of acute coronary syndrome with significant electrolyte abnormalities Patient needs pacemaker placement, currently waiting for bed availability. Patient understands reason for wait time and anticipated treatments. Care is discussed with Dr. Peters, hospitalist at [facility]. Patient is accepted. Patient is updated on plans and findings. Will wait for bed assignment and then arrange for transport 945pm patient just had a 40 seconds pause/asystole. She was not breathing, had no pulse, CPR was ongoing for approximately 30 seconds. She had return of circulation. No meds were needed. She is alert and appropriate immediately after the event, not complaining of any pain just feeling that she is ?burning all over?. Oxygen saturations returned to the upper 90s with spontaneous respiration. Doctors Lorraine and Alexey are notified of events. Scheduled ETA for ambulance is 10:00 p.m. tonight Critical Care Time <Svetlana Pham MD - Last Filed: 06/30/25 23:30> Critical Care Time Critical Care Time: Yes Total Critical Care Time: 45 Attestation: Critical care time is separate from other billable procedures. There is a high probability of a significant, sudden or life-threatening deterioration that requires my full and direct attention, intervention and personal management. This critical care time includes consultation with family and other consulting doctors, review of records, and interpretation of data from labs, EKGs and imaging as well as managements of symptomatic bradycardia with consultations with multiple hospitals and physicians trying to find transfer space available. She did have a brief episode of bradycardia with code blue called and CPR started. ROSC within approximately 45 seconds. No meds or advanced airway required Discharge Plan Departure Patient Disposition: [facility] Clinical Impression: Symptomatic bradycardia, Cardiac asystole Prescriptions: No Action dupilumab [Dupixent Pen] SUBCUT simvastatin 10 MG tablet Qty: 0 triamterene-hydrochlorothiazid 37.5 MG/25 MG tablet Qty: 0 biotin 5 MG tablet Qty: 0 naproxen sodium [Aleve] 220 MG capsule 220 mg PO Qty: 0 oseltamivir [Tamiflu] 75 MG capsule 75 mg PO BID Qty: 10 0RF Referrals: Miscellaneous,DoctorMD [Primary Care Provider, Medical]
[2025-06-30 10:34] LABS: Add Manual Diff / Slide Review NO; Hematocrit 41.3 % (36-46); Hemoglobin 14.4 g/dL (12.0-16.0); Lymphocytes Absolute Auto 1400 /uL (1100-4500); Mean Corpuscular HGB Conc 34.8 % (30-36); Mean Corpuscular Hemoglobin 30.5 PG (26-34); Mean Corpuscular Volume 87.6 fL (80-100); Platelet Count 214 X10^3/uL (150-400)
--- NOTE | 2025-06-30 10:36 | DI.CT.S_ITS ---
PROCEDURE: CT HEAD/BRAIN WO CON INDICATIONS: syncope TECHNIQUE: Noncontrast 4.5 mm thick angled axial sections acquired from the foramen magnum to the vertex, with coronal and sagittal reformats. For radiation dose reduction, the following was used: automated exposure control, adjustment of mA and/or kV according to patient size. COMPARISON: [facility], CT, CT ANGIO CHEST PE PROTOCOL, 06/30/2025, 12:07. [facility], CT, CT ANGIO HEAD AND NECK, 06/30/2025, 11:21. FINDINGS: Image quality: Diagnostic. CSF spaces: Basal cisterns are patent. No extra-axial fluid collections. The ventricles are symmetric in size and shape. Brain: No intracranial bleeds or mass effect. There is cerebral volume loss, with resultant ventricular and sulcal prominence. There are periventricular and deep white matter chronic small vessel ischemic changes. There is intracranial internal carotid artery atherosclerosis. Skull and face: Calvarium and visualized facial bones appear intact, without suspicious lesions. Sinuses: Visualized sinuses and mastoids are clear. IMPRESSION: No imaging explanation is found for this patient's presenting symptoms. No acute intracranial pathology. Dictated by: Scooby Escalante M.D. on 06/30/2025 at 11:29 Approved by: Scooby Escalante M.D. on 06/30/2025 at 11:31
--- NOTE | 2025-06-30 10:36 | DI.CT.S_ITS ---
PROCEDURE: CT ANGIO CHEST PE PROTOCOL INDICATIONS: Syncope TECHNIQUE: After the administration of intravenous contrast, 2 mm thick sections acquired from the pulmonary apices to the posterior costophrenic angles. 3-dimensional maximum intensity projection (MIP) coronal and sagittal reformats were then acquired through the thorax. For radiation dose reduction, the following was used: automated exposure control, adjustment of mA and/or kV according to patient size. COMPARISON: [facility], CR, XR CHEST 1V, 03/22/2025, 20:27. [facility], CT, CT ANGIO HEAD AND NECK, 06/30/2025, 11:21. [facility], CT, CT HEAD/BRAIN WO CON, 06/30/2025, 11:21. FINDINGS: Image quality: Diagnostic. Pulmonary arteries: Pulmonary arteries are normal in size, and demonstrate no intraluminal filling defects to suggest central pulmonary embolism. Lower Neck: No enlarged lymph nodes. Thyroid: No thyroid nodules which require sonographic follow up, per consensus guidelines. Axillae: No enlarged lymph nodes. Chest Wall: Unremarkable. Bones: Age-appropriate bony degenerative changes are seen. Accentuated thoracic kyphosis is seen. Lungs and Pleura: No pneumothorax or pleural effusions. Mild dependent atelectasis can be seen. No consolidation or suspicious nodules. Heart: Heart size is normal. No pericardial effusion. Thoracic Vessels: No aortic aneurysm. Mediastinum and [place]: No enlarged lymph nodes. Esophagus: No wall thickening. No hiatal hernia. Upper Abdomen: Gallstones are gallstones are seen within the gallbladder. No additional CT findings of cholecystitis are seen. Excreting contrast can be seen within the renal collecting systems. Colonic diverticulosis is seen, without findings of active diverticulitis. The visualized portions of the upper abdominal structures are otherwise unremarkable for imaging technique. IMPRESSION: No pulmonary embolus. No acute cardiopulmonary process. Additional findings: Gallstones Diverticulosis, without active diverticulitis Dictated by: Scooby Escalante M.D. on 06/30/2025 at 12:02 Approved by: Scooby Escalante M.D. on 06/30/2025 at 12:04
--- NOTE | 2025-06-30 10:36 | DI.CT.S_ITS ---
PROCEDURE: CT ANGIO HEAD AND NECK INDICATIONS: syncope TECHNIQUE: After the administration of intravenous contrast, 1 mm thick sections acquired from the aortic arch through the [place]. 3-dimensional xfrpcas-sytqusovp-qyrrwljhjg (MIP) and/or volume rendering reformats were acquired of the central intracranial vasculature and neck separately. For radiation dose reduction, the following was used: automated exposure control, adjustment of mA and/or kV according to patient size. COMPARISON: [facility], CT, CT ANGIO CHEST PE PROTOCOL, 06/30/2025, 12:07. [facility], CT, CT HEAD/BRAIN WO CON, 06/30/2025, 11:21. FINDINGS: Image quality: Limited by bolus timing, with venous contamination. There is artifact associated with the metallic hardware. Artifact from the metallic hardware is reduced by metal reconstruction algorithm. There is streak artifact seen through the level of the shoulders. Cerebral CT Angiogram: Internal carotid arteries: No acute findings. Intracranial ICA are patent with no significant stenosis. No occlusion. No aneurysm. Anterior cerebral arteries: Unremarkable. No significant stenosis. No occlusion. No aneurysm. Middle cerebral arteries: Unremarkable. No significant stenosis. No occlusion. No aneurysm. Posterior cerebral arteries: The left V4 segment is within normal limits. The right V4 segment largely terminates in the right posterior inferior cerebellar artery. Flow within the posterior cerebral arteries is normal and symmetric. No aneurysms are seen. Basilar artery: Unremarkable. No significant stenosis. No occlusion. No aneurysm. Vertebral arteries: Unremarkable as visualized. Dural venous sinuses: Unremarkable given phase of enhancement. Other: Arterial phase appearance of the brain parenchyma is unremarkable. Neck CT Angiogram: Internal carotid arteries: Unremarkable. No significant stenosis. No dissection or occlusion. Common carotid arteries: Unremarkable. No significant stenosis. No dissection or occlusion. External carotid arteries: Unremarkable. No occlusion. Vertebral arteries: The origins of the vertebral arteries both appear widely patent. The more superior extracranial portions of both vertebral arteries also demonstrate normal courses and calibers. The left vertebral artery is dominant to the right. Aortic Arch and Mediastinum: Partially visualized aortic arch unremarkable without evidence of aneurysm. Origins of the great vessels unremarkable. Other: Arterial phase soft tissues of the neck and chest are unremarkable. At least moderate lower cervical spine degenerative change can be seen. IMPRESSION: No significant intracranial arterial abnormality is seen. No significant abnormality is seen within the arteries of the neck. 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 At least moderate lower cervical spine degenerative change Any quantitative measurements of stenosis were performed using NASCET criteria. Dictated by: Scooby Escalante M.D. on 06/30/2025 at 11:34 Approved by: Scooby Escalante M.D. on 06/30/2025 at 11:36
[2025-06-30 10:41] LABS: INR 1.0 (0.9-1.3); Prothrombin Time 11.2 SECONDS (9.4-12.5)
[2025-06-30 10:44] LABS: PTT Partial Thromboplastin Tim 28 SECONDS (25.1-36.5)
[2025-06-30 10:45] LABS: Alanine Aminotransferase 17 IU/L (<35); Albumin 4.6 g/dL (3.5-5.0); Albumin Globulin Ratio 1.4 (1.0-2.8); Alkaline Phosphatase 60 U/L (38-126); Blood Urea Nitrogen 19 mg/dL (7-17); Calcium 9.1 mg/dL (8.4-10.2); Carbon Dioxide 29 mmol/L (22-32); Chloride 101 mmol/L (98-107); Creatine Kinase 76 U/L (30-135); Estimated Glomerular Filt Rate > 60 mL/min (>60); Globulin 3.3 g/dL (1.7-4.1); Glucose 109 mg/dL (70-99); HEMOLYSIS < 15 (0-50); Lipase 76 U/L (23-300); Magnesium 1.8 mg/dL (1.6-2.3); Potassium 3.4 mmol/L (3.4-5.1); Sodium 137 mmol/L (137-145); Total Protein 7.9 g/dL (6.3-8.2)
[2025-06-30 10:57] LABS: NT-proBNP (BNP-Adult 18+) 67 pg/mL (<125); Troponin I < 0.012 ng/mL (0.01-0.034)
--- NOTE | 2025-06-30 11:34 | PC.NURSE ---
Pt rec'd call from [facility] MEEK in [place] regarding ZIO patch. advised this morning at 0930 had sinus arrest for prolonged period x 2. ZIO patch removed. code cart at bedside and pt placed on pacer pads for precautions. AAOx3 at this time. HR has not been lower than 50 in ED.
[2025-06-30 11:45] LABS: Thyroid Stimulating Hormone 0.086 uIU/mL (0.47-4.68)
[2025-06-30 13:06] LABS: Free T4, Direct Thyroxine 1.13 ng/dL (0.78-2.19)
--- NOTE | 2025-06-30 14:28 | PC.NURSE ---
status unchanged. pt resting in bed with cardiac monitoring talking on phone. attached to pacer pads for precaution. HR has not been below 50 for duration of stay. denies pain denies SOB. [facility] patient and waiting on [facility] call back for transfer for potential pacemaker placement.
[2025-06-30] MEDS: HEPARIN DRIP 25,000 UNIT/500 ML IV.SOLN 18.942 UNIT IV (15:33)
[2025-06-30] MEDS: HEPARIN 5,000 UNIT/ML VIAL 4500 UNIT IV (15:34)
[2025-06-30 15:38] LABS: Troponin I < 0.012 ng/mL (0.01-0.034)
--- NOTE | 2025-06-30 17:05 | PC.NURSE ---
Pt resting on stretcher. Noted on monitor at nurses station that rhythm appears different than on arrival. ST segment changes with increased depression from 1100 as compared to [address]. [address] Pham made aware. strips printed and placed in chart. no new orders at this time. pt denies CP/SOB/lightheadedness or dizziness at this time. Call placed to [facility] for update on potential bed status. pt remains on heparin gtt with next PTT at 2130
[2025-06-30 17:10] LABS: Culture Indicated Urine Cult Not Indicated
--- NOTE | 2025-06-30 19:25 | PC.NURSE ---
report given PATRIA keith
== END 2025-06-30 22:56 | disposition short-term general hospital (02) ==
PROVIDERS: Family Medicine; Emergency Provider Emergency Medicine
DX: I46.9 Cardiac arrest, cause unspecified (principal); R00.1 Bradycardia, unspecified; R42 Dizziness and giddiness
CPT/HCPCS: 36415; 70450; 70496; 70498; 71275; 80053; 81015; 82550; 83690; 83735; 83880; 84439; 84443; 84484; 85025; 85610; 85730; 92950; 93005; 93010; 96365; 96366; 96375; 99285; 99291; J1644; Q9967